=== PATIENT | male | born 1985 | race Caucasian/White ===

== ENCOUNTER 2025-05-12 11:10 | Emergency (ER) | payer OTHER, BC ==
[2025-05-12] MEDS: Lidocaine 1% 5 ML VIAL ONE (11:42)
[2025-05-12] MEDS: Lidocaine 1% 5 ML VIAL INJECT ONE (11:42)
[2025-05-12] MEDS: Diphtheria,Pertussis(Acell),Tetanus Vaccine 0.5 ML Syringe IM ONE (11:44)
[2025-05-12] MEDS: Bacitracin/Neomycin/Polymyxin B Oint 0.9 GM U/D Packet ONE (12:59)
[2025-05-12] MEDS: Bacitracin/Neomycin/Polymyxin B Oint 0.9 GM U/D Packet TOP ONE (13:00)
== END 2025-05-12 12:30 | disposition home or self-care (01) ==
LOC: LL.ED 11:10
DX: S61.012A Laceration without foreign body of left thumb without damage to nail, initial encounter (principal); Z23 Encounter for immunization; W27.0XXA Contact with workbench tool, initial encounter; Y93.89 Activity, other specified
CPT/HCPCS: 12002; 90471; 90715; 99283; J2003